=== PATIENT | female | born 1965 | race Hispanic/Latino ===

== ENCOUNTER 2020-06-10 11:48 | Observation (INO) | payer BC, OTHER ==
[2020-06-10] MEDS ORDERED: Aspirin Chewable 81 MG TAB ONE (12:18)
[2020-06-10] MEDS ORDERED: Nitroglycerin 2% Ointment 1 INCH/1 GM Packet ONE (12:18)
[2020-06-10 12:24] LABS: #Basophils 0.1 thou/uL (0.0-0.2); #Eosinphils 0.2 thou/uL (0.0-0.7); #Lymphocytes 4.4 thou/uL (1.20-3.40); #Monocytes 0.6 thou/uL (0.11-0.59); #Neutrophils 3.5 thou/uL (1.40-6.50); %Basophils 0.9 % (0.0-1.0); %Eosinophils 1.9 % (0.0-10.0); %Lymphocytes 49.9 % (21.0-51.0); %Monocytes 6.8 % (0.0-10.0); %Neutrophils 40.4 % (42.0-75.0); Hemoglobin 14.9 g/dL (12.0-16.0); Mean Corpuscular HGB CONC 34.5 g/dL (32.0-36.0); Mean Corpuscular Hemoglobin 32.6 pg (27.0-31.0); Mean Corpuscular Volume 94.7 fL (78.0-98.0); Mean Platelet Volume 7.9 fL (7.4-10.4); Platelet Count 403 thou/uL (130-400); RBC Distribution Width 11.4 % (11.5-14.5); Red Blood Cell (RBC) Count 4.55 mill/uL (4.20-5.40); White Blood Cell (WBC) Count 8.8 thou/uL (4.8-10.8)
--- NOTE | 2020-06-10 12:30 | RAD ---
RADIOGRAPH CHEST 1 VIEW: DATE: 06/10/2020 HISTORY: 54-year-old female with chest pain and dyspnea FINDINGS: There are no airspace densities, pulmonary edema, pneumothorax, or cardiomegaly. The lateral costophr enic angles are sharp. IMPRESSION: No acute cardiopulmonary findings.
[2020-06-10 12:45] LABS: ALT (SGPT) 34 U/L (8-55); AST (SGOT) 31 U/L (5-34); Albumin 4.4 g/dL (3.5-5.0); Alkaline Phosphatase 99 U/L (40-110); Anion Gap 14 mmol/L (10-20); BUN (Urea Nitrogen) 12 mg/dL (9.8-20.1); Bilirubin, Total 0.4 mg/dL (0.2-1.2); CK (CPK) 75 U/L (29-168); Calc. Creatinine Clearance 0 mL/min (70-130); Calcium 9.9 mg/dL (7.8-10.44); Carbon Dioxide 29 mmol/L (22-29); Chloride 101 mmol/L (98-107); Estimated GFR-MDRD 76; Globulin 3.8 g/dL (2.4-3.5); Glucose 104 mg/dL (70-105); Potassium 3.4 mmol/L (3.5-5.1); Protein, Total 8.2 g/dL (6.0-8.3); Sodium 141 mmol/L (136-145)
[2020-06-10] MEDS ORDERED: hydrALAZINE 20 MG/ML VIAL SLOW IVP SCH (13:15)
[2020-06-10 18:10] LABS: Troponin I Less than 0.010 ng/mL (< 0.028)
[2020-06-10] MEDS ORDERED: Ondansetron PF 4 MG/2 ML Vial IVP PRN (20:15)
[2020-06-10] MEDS ORDERED: Ondansetron ODT 4 MG TAB SL PRN (20:15)
[2020-06-10] MEDS ORDERED: Acetaminophen/Codeine 30-300mg Tablet PO PRN (20:26)
[2020-06-10] MEDS ORDERED: Acetaminophen 325 MG TAB PO PRN (20:26)
[2020-06-10] MEDS ORDERED: hydrALAZINE 20 MG/ML VIAL SLOW IVP PRN ×2 (20:55→21:15)
[2020-06-10 21:27] LABS: Troponin I Less than 0.010 ng/mL (< 0.028)
--- NOTE | 2020-06-10 21:35 | PDOC.HHP ---
Hospitalist HPI - History of Present Illness Chest pain History of Present Illness: This is a 54-year-old female patient with a history of hypertension hyperlipidemia who presents today with sudden onset chest pain while at work. Of note she was recently diagnosed with Covid on 25 May 2020 and was out of work. 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 She also had chest pain which lasted and of about 30 minutes mainly retrosternal 5-6 over 10 in intensity and nonradi ating. She notes that this has happened to her before in the past and these are usually associated with high blood pressures. She denied any associated wheeze, headaches or swelling of her feet. She came to the ED for further evaluation. At presentation her blood pressure was 182/74, pulse 82, respiratory rate 12, temperature 98.4 saturation 100% on room air. CBC was generally unremarkable. She had mild hypokalemia of 3.4 otherwise BMP was within normal limits. Troponin was negative x3. Chest x-ray was generally unremarkable. She received Nitro-Bid, hydralazine for BP and aspirin. Hospitalist team was consulted for admission Hospitalist ROS - Review of Systems Constitutional: denies: fever, chills, sweats Respiratory: denies: cough, shortness of breath, hemoptysis Cardiovascular: reports: chest pain, palpitations. denies: orthopnea, paroxysmal noc. dyspnea Gastrointestinal: denies: nausea, vomiting, abdominal pain Genitourinary: denies: dysuria, frequency, incontinence Musculoskeletal: denies: neck pain, shoulder pain, arm pain Neurological: denies: weakness, numbness, incoordination - Medication Medications: Active Medications Generic Name Dose Route Start Last Admin Trade Name Freq PRN Reason Stop Dose Admin Acetaminophen 650 mg 06/10/20 20:26 06/10/20 21:19 Acetaminophen 325 Mg Tab PO 650 mg Q6H PRN Administration Mild Pain (1-3) Hospitalist History - Past Medical History Other Medical History: Hypertension, hyperlipidemia - Exam General Appearance: awake alert Eye: PERRL, anicteric sclera ENT: normocephalic atraumatic, no oropharyngeal lesions Heart: RRR, no murmur, no gallops, no rubs Respiratory: no wheezes, no rales, no ronchi, no tachypnea Gastrointestinal: soft, non-tender, non-distended, normal bowel sounds Extremities: no cyanosis, no clubbing, no edema Hospitalist Results - Labs Result Diagrams: 06/10/20 12:02 06/10/20 12:02 Lab results: WBC 8.8 thou/uL (4.8-10.8) 06/10/20 12:02 Hgb 14.9 g/dL (12.0-16.0) 06/10/20 12:02 Hct 43.1 % (36.0-47.0) 06/10/20 12:02 MCV 94.7 fL (78.0-98.0) 06/10/20 12:02 Plt Count 403 thou/uL (130-400) H 06/10/20 12:02 Neutrophils % 40.4 % (42.0-75.0) L 06/10/20 12:02 Sodium 141 mmol/L (136-145) 06/10/20 12:02 Potassium 3.4 mmol/L (3.5-5.1) L 06/10/20 12:02 Chloride 101 mmol/L (98-107) 06/10/20 12:02 Carbon Dioxide 29 mmol/L (22-29) 06/10/20 12:02 BUN 12 mg/dL (9.8-20.1) 06/10/20 12:02 Creatinine 0.79 mg/dL (0.6-1.1) 06/10/20 12:02 Glucose 104 mg/dL (70-105) 06/10/20 12:02 Calcium 9.9 mg/dL (7.8-10.44) 06/10/20 12:02 Total Bilirubin 0.4 mg/dL (0.2-1.2) 06/10/20 12:02 AST 31 U/L (5-34) 06/10/20 12:02 ALT 34 U/L (8-55) 06/10/20 12:02 Alkaline Phosphatase 99 U/L (40-110) 06/10/20 12:02 Creatine Kinase 75 U/L (29-168) 06/10/20 12:02 Troponin I Less than 0.010 ng/mL (< 0.028) 06/10/20 20:41 Serum Total Protein 8.2 g/dL (6.0-8.3) 06/10/20 12:02 Albumin 4.4 g/dL (3.5-5.0) 06/10/20 12:02 Lipase 30 U/L (8-78) 06/10/20 12:02 Hospitalist H&P A/P - Plan Plan: This is a 54-year-old female patient with a history of hypertension hyperlipidemia who presents with chest pain and palpitations. Blood pressures were elevated concerning for hypertensive urgency. Hypertensive urgency Blood pressure improved with nitro. And hydralazine Currently his systolic running in the 120s. We will admit monitor blood pressure overnight Continue on as needed hydralazine/nitro Is on home BP medicationsHCTZ, atenolol amlodipine Adjust BP medications in a.m. Chest pain This has been recurrent Troponins have remained flat Heart score is 4 We will do stress test in the morning. Hyperlipidemia Repeat lipid profile in a.m. CODE STATUSfull code DVT prophylaxis nonepatient ambulatory
[2020-06-10] MEDS ORDERED: Potassium Chloride 20 MEQ TAB PO SCH (21:45)
[2020-06-10 22:18] VITALS: BMI 36.0
[2020-06-11 04:27] LABS: #Basophils 0.1 thou/uL (0.0-0.2); #Eosinphils 0.1 thou/uL (0.0-0.7); #Lymphocytes 3.6 thou/uL (1.20-3.40); #Monocytes 0.7 thou/uL (0.11-0.59); #Neutrophils 3.3 thou/uL (1.40-6.50); %Basophils 0.7 % (0.0-1.0); %Eosinophils 1.7 % (0.0-10.0); %Monocytes 9.3 % (0.0-10.0); %Neutrophils 42.4 % (42.0-75.0); Hemoglobin 13.3 g/dL (12.0-16.0); Mean Corpuscular HGB CONC 34.9 g/dL (32.0-36.0); Mean Corpuscular Hemoglobin 33.6 pg (27.0-31.0); Mean Corpuscular Volume 96.1 fL (78.0-98.0); Platelet Count 353 thou/uL (130-400); RBC Distribution Width 11.6 % (11.5-14.5); Red Blood Cell (RBC) Count 3.96 mill/uL (4.20-5.40); White Blood Cell (WBC) Count 7.8 thou/uL (4.8-10.8)
[2020-06-11 04:51] LABS: Anion Gap 13 mmol/L (10-20); BUN (Urea Nitrogen) 15 mg/dL (9.8-20.1); Calc. Creatinine Clearance 126 mL/min (70-130); Calcium 9.1 mg/dL (7.8-10.44); Carbon Dioxide 25 mmol/L (22-29); Cardiac Risk 6.8 (Less than 4.5); Chloride 106 mmol/L (98-107); Cholesterol 210 mg/dl (< 200 Desired); Estimated GFR-MDRD 84; Glucose 99 mg/dL (70-105); HDL Cholesterol 31 mg/dL (>60 Neg Risk); LDL Cholesterol, Calculated 120 mg/dL; Potassium 3.5 mmol/L (3.5-5.1); Sodium 140 mmol/L (136-145); Triglycerides 295 mg/dL (Less than 150)
--- NOTE | 2020-06-11 08:52 | PDOC.HOSPP ---
- Subjective Encounter Date: 06/11/20 Encounter Time: 08:50 Subjective: Ms. Em was seen today in follow-up of chest pain. She says she feels a little better now. No new complaints. - Objective Vital Signs & Weight: Vital Signs (12 hours) Temp Pulse Resp BP BP Pulse Ox 06/11/20 08:00 97.9 F 53 L 18 137/69 97 06/11/20 05:15 46 L 125/63 06/11/20 04:00 97.9 F 59 L 15 176/81 H 93 L 06/11/20 00:10 98.2 F 51 L 20 111/56 L 97 Weight Weight 197 lb I&O: 06/10/20 06/11/20 06/12/20 06:59 06:59 06:59 Intake Total 750 Balance 750 Result Diagrams: 06/11/20 03:52 06/11/20 03:52 Hospitalist ROS - Medication Medications: Active Medications Generic Name Dose Route Start Last Admin Trade Name Freq PRN Reason Stop Dose Admin Acetaminophen 650 mg 06/10/20 20:26 06/10/20 21:19 Acetaminophen 325 Mg Tab PO 650 mg Q6H PRN Administration Mild Pain (1-3) Amlodipine Besylate 5 mg 06/11/20 09:00 06/11/20 08:27 Amlodipine 5 Mg Tab PO 5 mg DAILY JOSE MARIA Administration Atenolol 12.5 mg 06/11/20 09:00 06/11/20 08:27 Atenolol 25 Mg Tab PO Not Given DAILY JOSE MARIA Hydrochlorothiazide 25 mg 06/11/20 09:00 06/11/20 08:27 Hydrochlorothiazide 25 Mg Tab PO 25 mg DAILY JOSE MARIA Administration Sodium Chloride 10 ml 06/10/20 21:00 06/11/20 08:27 Flush - Normal Saline 10 Ml Syringe IVF 10 ml Q12HR JOSE MARIA Administration - Exam Eye: PERRL, anicteric sclera Heart: RRR, no murmur, no gallops, no rubs, normal peripheral pulses Respiratory: CTAB, no wheezes, no rales, no ronchi, normal chest expansion, no tachypnea, normal percussion Gastrointestinal: soft, non-distended Hosp A/P (1) Chest pain Code(s): R07.9 - CHEST PAIN, UNSPECIFIED Status: Acute (2) COVID-19 virus infection Code(s): U07.1 - COVID-19 Status: Acute (3) Hypertension Code(s): I10 - ESSENTIAL (PRIMARY) HYPERTENSION Status: Acute - Plan * Chest pain- likely from elevated blood pressure, however she had recent COVID infection, and could have a pericarditis or myocarditis * Will check Echo * HTN- her heart rate has been low- can discontinue Atenolol, and either increase the dose of Amlodipine, or add Hydralazine as needed
[2020-06-11] MEDS ORDERED: Atenolol 25 MG TAB PO SCH (09:00)
[2020-06-11] MEDS ORDERED: Hydrochlorothiazide 25 MG TAB PO SCH (09:00)
[2020-06-11] MEDS ORDERED: Amlodipine 5 MG TAB PO SCH ×2 (09:00)
[2020-06-11 11:01] VITALS: BP 144/72; TEMP 97.6
--- NOTE | 2020-06-11 18:39 | PDOC.DS.DS ---
Provider - Provider Date of Admission: 06/10/20 14:53 Date of Discharge: 06/11/20 Admitting Provider: Jamshid Reyes MD Primary Care Physician: [facility] [place] Course - Hospital Course Hospital Course: Ms. Em is a 54-year-old female that has a history of hypertension and hyperlipidemia. She also was recently diagnosed with COVID-19 infection on May 25. She has since recovered from the Covid infection and is off isolation. She returned after noting chest pain as well as elevated blood pressure. She was placed in observation and ruled out. Her symptoms did not seem cardiac and once her blood pressure improved her symptoms improved. However given the COVID-19 infection an echocardiogram was done due to concerns for possible pericarditis or myocarditis. Since she had improved she would follow-up with the results as an outpatient with her primary care physician. She normally goes to the [facility], [place], operated by [facility] to receive her care. Her blood pressure was elevated and her heart rate was slow. She was already on a low-dose of atenolol and for this reason the atenolol was discontinued. Her heart rates were in the 40s and 50s. Her dose of amlodipine was increased from 5 mg to 10 mg. She is on hydrochlorothiazide and potassium was added to this to avoid hypokalemia. Resuscitation Status: 06/10/20 20:24 Resuscitation Status Routine Resuscitation Status: FULL: Full Resuscitation - Labs Lab Results: 06/11/20 03:52 06/11/20 03:52 Abnormal Lab Results - Last 48 hrs 06/10/20 12:02: MCH 32.6 H, RDW 11.4 L, Plt Count 403 H, Neutrophils % 40.4 L, Lymphocytes # 4.4 H, Monocytes # 0.6 H 06/10/20 12:02: Potassium 3.4 L, Globulin 3.8 H 06/11/20 03:52: Triglycerides 295 H, Cholesterol 210 H 06/11/20 03:52: RBC 3.96 L, MCH 33.6 H, Lymphocytes # 3.6 H, Monocytes # 0.7 H - Physical Exam Vitals: Vital Signs (12 hours) Temp Pulse Resp BP Pulse Ox 06/11/20 11:00 97.6 F 56 L 12 144/72 H 98 06/11/20 08:00 97.9 F 53 L 18 137/69 97 Weight Weight 197 lb Physical Exam: The patient was seen and examined on the day of discharge. Problem - Problem (1) Chest pain Code(s): R07.9 - CHEST PAIN, UNSPECIFIED Status: Acute (2) COVID-19 virus infection Code(s): U07.1 - COVID-19 Status: Acute (3) Hypertension Code(s): I10 - ESSENTIAL (PRIMARY) HYPERTENSION Status: Acute Plan - Discharge Medications Prescriptions: Amlodipine [Norvasc] 10 mg PO DAILY #30 tab Potassium Chloride 10 meq PO DAILY #30 tab Home Medications: Medication Instructions Recorded Confirmed Type Hydrochlorothiazide 25 mg PO DAILY 06/10/20 06/10/20 History Amlodipine [Norvasc] 10 mg PO DAILY #30 tab 06/11/20 Rx Potassium Chloride 10 meq PO DAILY #30 tab 06/11/20 Rx Allergies: No Allergy Information Available Allergy (Verified 06/10/20 23:36) - Discharge Instructions Discharge Instructions:: Return to the ED if you feel lightheaded, palpitations or dizzy. Follow up with your PCP to review your echocardiogram results. You will stop taking your [place] olol since it was lowering your heart rate. Activity:: Activity as Tolerated Nourishment:: Heart Healthy Diet, Low Sodium Diet - Follow up Plan Referrals: [facility] & [Primary Care Provider] - 7 Days (Follow up with your primary care provider within a week to review you echocardiogram results. ) Disposition: HOME Quality - Care Measures CORE MEASURES:: N/A
== END 2020-06-11 11:15 | disposition home or self-care (01) ==
LOC: ERS 11:48 → ERHOLD 14:53 → 2NO 20:16
PROVIDERS: ADMIT Student in an Organized Health Care Education/Training Program; ATTEND Student in an Organized Health Care Education/Training Program
DX: U07.1 COVID-19 (principal); I16.0 Hypertensive urgency; I10 Essential (primary) hypertension; E78.5 Hyperlipidemia, unspecified
CPT/HCPCS: 36415; 71045; 80048; 80053; 80061; 82550; 83690; 84484; 85025; 85379; 93005; 93306; 94760; 96374; G0378; J0360